=== PATIENT | male | born 1965 | race Caucasian/White ===

== ENCOUNTER 2020-05-20 21:08 | Inpatient (IN) | payer OTHER ==
[2020-05-20] MEDS ORDERED: ACETAMINOPHEN 325 MG TAB ONE (21:46)
[2020-05-20] MEDS ORDERED: BENZONATATE 100 MG CAPSULE PO ONE (21:46)
[2020-05-20 21:50] LABS: BASOPHILS % (AUTO) 0.2 % (0.0-5.0); HEMATOCRIT 49.6 % (42-54); LYMPHOCYTES % (AUTO) 11.4 % (21.0-51.0); MEAN CORPUSCULAR HEMOGLOBIN 28.3 pg (27.0-33.0); MEAN CORPUSCULAR HGB CONC 32.5 g/dL (32.0-36.0); MEAN CORPUSCULAR VOLUME 87.3 fL (79-99); MONOCYTES % (AUTO) 5.9 % (3.0-13.0); PLATELET COUNT (AUTO) 305 K/uL (130-400); RED BLOOD CELL COUNT(AUTO) 5.68 MIL/uL (4.50-6.20); RED CELL DISTRIBUTION WIDTH 13.5 % (11.0-15.5); WHITE BLOOD COUNT (AUTO) 8.3 K/uL (4.8-10.8)
[2020-05-20 22:09] LABS: CREATININE 1.2 mg/dL (0.5-1.5); POTASSIUM 3.7 mmol/L (3.5-5.1)
[2020-05-20 22:14] LABS: ALBUMIN 3.7 g/dL (3.5-5.0); BILIRUBIN,TOTAL 0.3 mg/dL (0.2-1.0); TOTAL PROTEIN, SERUM 8.6 g/dL (6.0-8.3)
[2020-05-20 22:22] LABS: B-TYPE NATRIURETIC PEPTIDE 69 pg/mL (0-100)
[2020-05-20] MEDS ORDERED: IOHEXOL-350 75 ML VIAL IV ONE (22:55)
[2020-05-21] MEDS ORDERED: DEXAMETHASONE SOD PHOSPHATE 10MG/ML 1ML VIAL ONE (00:51)
[2020-05-21] MEDS ORDERED: CEFTRIAXONE SODIUM 1 GM ONE (00:52)
[2020-05-21] MEDS ORDERED: MAG HYDROX/AL HYDROX/SIMETH ES 30 ML SUSP UDCUP ONE (00:53)
[2020-05-21] MEDS ORDERED: LIDOCAINE HCL 2% VISCOUS 15 ML UDCUP ONE (00:53)
[2020-05-21] MEDS ORDERED: SODIUM CHLORIDE 0.9% 50 ML IV ONE (00:55)
[2020-05-21] MEDS ORDERED: CEFTRIAXONE SODIUM 1 GM IVP SCH (01:00)
[2020-05-21] MEDS ORDERED: ERGOCALCIFEROL (VITAMIN D2) 50,000 UNIT CAPSULE PO SCH (01:00)
[2020-05-21] MEDS ORDERED: HYDRALAZINE HCL 20 MG/ML VIAL IV PRN (01:00)
[2020-05-21] MEDS ORDERED: ACETAMINOPHEN 325 MG TAB PO PRN ×2 (01:00)
[2020-05-21] MEDS ORDERED: ONDANSETRON HCL 4 MG/2 ML VIAL IV PRN (01:00)
[2020-05-21 01:05] LABS: ABG BASE EXCESS -0.6 mmol/L (-2.0-3.0); ABG HCO3 21.4 mmol/L (21.0-28.0); ABG OXYGEN SATURATION 88.7 % (95.0-99.0); ABG PCO2 29 mmHg (35-48)
[2020-05-21] MEDS ORDERED: AZITHROMYCIN 500MG+NS 250ML 250 ML IV SCH (01:15)
[2020-05-21] MEDS ORDERED: AZITHROMYCIN 500MG+NS 250ML 250 ML IV ONE (01:46)
[2020-05-21] MEDS ORDERED: ENOXAPARIN SODIUM 40 MG/0.4 ML SYRINGE SQ SCH (09:00)
[2020-05-21] MEDS ORDERED: ASCORBIC ACID 500 MG TAB PO SCH (09:00)
[2020-05-21] MEDS ORDERED: BENZONATATE 100 MG CAPSULE PO SCH (09:00)
[2020-05-21] MEDS ORDERED: ZINC SULFATE 220 CAPSULE PO SCH (09:00)
[2020-05-21] MEDS ORDERED: ACETYLCYSTEINE 600 MG CAPSULE PO SCH (09:00)
[2020-05-21] MEDS ORDERED: METHYLPREDNISOLONE SOD SUCC 40MG/ML 1ML IVP SCH (09:00)
[2020-05-21] MEDS ORDERED: FAMOTIDINE/PF 20 MG/2 ML VIAL IV SCH (09:00)
[2020-05-21] MEDS ORDERED: ASCORBIC ACID 500 MG TAB ONE (10:37)
[2020-05-21] MEDS ORDERED: METHYLPREDNISOLONE SOD SUCC 40MG/ML 1ML ONE (10:37)
[2020-05-21] MEDS ORDERED: BENZONATATE 100 MG CAPSULE PO ONE (10:38)
[2020-05-21] MEDS ORDERED: ZINC SULFATE 220 CAPSULE ONE (10:38)
[2020-05-21] MEDS ORDERED: ACETYLCYSTEINE 600 MG CAPSULE ONE (10:38)
[2020-05-21] MEDS ORDERED: FAMOTIDINE/PF 20 MG/2 ML VIAL IV ONE (10:39)
--- NOTE | 2020-05-21 13:50 | NUR ---
SPOKE TO PATIENT VIA PHONE L EXPLAINED TO HIM THAT IT WOULD BE MOST BENEFICIAL TO HAVE PATIENCE WITH THE PROCESS AND ALLOW THE MEDS TO TAKE EFFECT. 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 ADVISED HIM THAT HIS WAS SATING 88% WHEN ABG WAS DONE AT 0100 IN THE MORNING, AND THE MEDICINES HE HAS BEEN GIVEN SO FAR HAVE MADE SOME IMPROVEMENT PAIENT STATES HERE TO PICK HIM UP AND HE IS LEAVING [employer] TO DRIVE TO [place] TO PRESENT HIMSELF AT AT [facility] . ADVISED HIM TO WAIT UNTIL HE HAS HIS COVID TEST IN HIS HAND. PT DECLINED SAYING HE NEEDED TO LEAVE TODAY Addendum: 05/21/20 at 1406 by MAXINE SHRESTHA RN Amended: Links added.
== END 2020-05-21 18:27 | disposition left against medical advice (07) | DRG 189 ==
LOC: EDH 21:08 → EDHIP 05-21 00:47
PROVIDERS: ADMIT Internal Medicine; ATTEND Internal Medicine
DX: J96.01 Acute respiratory failure with hypoxia (principal); K76.0 Fatty (change of) liver, not elsewhere classified; J45.909 Unspecified asthma, uncomplicated; Z20.828 Contact with and (suspected) exposure to other viral communicable diseases; Z87.891 Personal history of nicotine dependence
CPT/HCPCS: 36415; 36600; 71275; 80053; 82550; 82803; 83615; 83880; 84145; 84484; 85025; 87040; 87804; 93005; 94760; G0378; J0456; J0696; J1100; J2920; J3490; Q9967; U0003